=== PATIENT | male | born 1945 | race Caucasian/White ===

== ENCOUNTER 2017-08-07 07:52 | Day surgery (SDC) | payer MEDICARE, OTHER ==
[2017-08-06 11:57] LABS: BLOOD UREA NITROGEN 7 mg/dL (7-18)
[2017-08-06 12:00] LABS: ASPARTATE AMINO TRANSFERASE 19 U/L (15-37)
[~2017-08-07] VITALS: Ht 170.2 cm; Wt 76.5 kg
[~2017-08-07 07:52] MED LIST: ATOR80TA PO; EZET10TA18 PO; FENO145T32 PO; GABA300C10 PO; HYDR-3240 PO; HYDR12.58 PO; IBUP-1222 PO; INSU100I13 SC; LATA2.5D3 EACHEYE; LOSA25TA5 PO; MIRT30TA4 PO; RANI150T4 PO; SITA50TA PO; VENL150C PO; VERA240T86 PO
[2017-08-07] MEDS ORDERED: LACTATED RINGERS 1,000 ML IV SCH (08:34)
[2017-08-07] MEDS ORDERED: METH500T97 PO (08:37)
[2017-08-07 08:40] VITALS: BP 156/78
[2017-08-07] MEDS ORDERED: DEXAMETHASONE 4 MG/ML, 1ML ONE (08:56)
[2017-08-07] MEDS ORDERED: ONDANSETRON 2MG/ML, 2ML ONE (08:56)
[2017-08-07] MEDS ORDERED: PROPOFOL 10 MG/ML, 20ML ONE (08:56)
[2017-08-07] MEDS ORDERED: HYDROmorphone 1 MG/ML, 1ML IV PRN (09:00)
[2017-08-07] MEDS ORDERED: LABETALOL 5MG/ML, 20ML IV PRN (09:00)
[2017-08-07] MEDS ORDERED: hydrALAzine 20 MG/ML, 1ML IV PRN (09:00)
[2017-08-07] MEDS ORDERED: ALBUTEROL SULFATE 2.5 MG/3 ML NPPB PRN (09:00)
[2017-08-07] MEDS ORDERED: FENTANYL PF 100 MCG/2ML IV PRN (09:00)
[2017-08-07] MEDS ORDERED: PROMETHAZINE 25 MG/ML, 1ML IV PRN (09:00)
[2017-08-07] MEDS ORDERED: LIDOCAINE 1%, 2ML SQ PRN (09:00)
[2017-08-07] MEDS ORDERED: OXYcodone 5 MG/5 ML ORAL.SOL UDC PO PRN (09:00)
[2017-08-07] MEDS ORDERED: MEPERIDINE/PF 25MG/0.5ML IVPush PRN (09:00)
[2017-08-07] MEDS ORDERED: MIDAZOLAM 1 MG/ML, 2ML IV PRN (09:00)
[2017-08-07] MEDS ORDERED: ONDANSETRON 2MG/ML, 2ML IVPush PRN (09:00)
[2017-08-07] MEDS ORDERED: ACETAMINOPHEN 325 MG TABLET PO PRN (09:00)
== END 2017-08-07 11:20 ==
LOC: OUT 07:52
PROVIDERS: ATTEND Internal Medicine Geriatric Medicine
DX: C15.9 Malignant neoplasm of esophagus, unspecified (principal); K21.9 Gastro-esophageal reflux disease without esophagitis; J44.9 Chronic obstructive pulmonary disease, unspecified; E78.5 Hyperlipidemia, unspecified; I10 Essential (primary) hypertension; E11.9 Type 2 diabetes mellitus without complications; F17.210 Nicotine dependence, cigarettes, uncomplicated; Z86.14 Personal history of Methicillin resistant Staphylococcus aureus infection; Z88.8 Allergy status to other drugs, medicaments and biological substances; Z72.89 Other problems related to lifestyle
CPT/HCPCS: 36415; 43237; 43239; 80053; 82962; 93005; J1100; J2405; J2704; J7120

== ENCOUNTER → 2017-08-28 | Outpatient (CLI) | payer MEDICARE, OTHER ==
[~2017-08-28] MED LIST changes: +ATARAX; +METH500T97 PO; +XANAX
[2017-08-28 10:55] LABS: HEMATOCRIT 42.8 % (39.2-51.8); HEMOGLOBIN 14.5 g/dL (13.7-18.0); WHITE BLOOD COUNT 6.7 x10^3/uL (3.4-10)
[2017-08-28 11:08] LABS: ASPARTATE AMINO TRANSFERASE 25 U/L (15-37); BLOOD UREA NITROGEN 6 mg/dL (7-18)
== END | disposition home or self-care (01) ==
LOC: STAR 09:58
PROVIDERS: ATTEND Thoracic Surgery (Cardiothoracic Vascular Surgery)
DX: Z01.818 Encounter for other preprocedural examination (principal)
CPT/HCPCS: 36415; 80053; 85025

== ENCOUNTER 2017-09-07 09:59 | Inpatient (IN) | payer MEDICARE, OTHER ==
[~2017-09-07] VITALS: Ht 170.2 cm; Wt 71.3 kg
[2017-09-07] MEDS ORDERED: LACTATED RINGERS 1,000 ML IV SCH (13:20)
[2017-09-07 13:21] VITALS: BP 152/88
[2017-09-07] MEDS ORDERED: LIDOCAINE 1%, 2ML SQ PRN (13:30)
[2017-09-07] MEDS ORDERED: LIDOCAINE 2%, 2ML ONE (13:33)
[2017-09-07] MEDS ORDERED: LIDOCAINE 1%, 2ML ONE (14:08)
[2017-09-07] MEDS ORDERED: FENTANYL PF 250 MCG/5ML ONE (14:11)
[2017-09-07] MEDS ORDERED: PROPOFOL 10 MG/ML, 20ML ONE (14:13)
[2017-09-07] MEDS ORDERED: ROCURONIUM 10MG/ML,5ML ONE (14:13)
[2017-09-07] MEDS ORDERED: CEFAZOLIN 1,000 MG ONE ×2 (14:13)
[2017-09-07] MEDS ORDERED: BUPIVACAINE/PF 0.5% ONE (14:16)
[2017-09-07] MEDS ORDERED: EPINEPHRINE 1 MG/ML, 1ML ONE (14:16)
[2017-09-07] MEDS ORDERED: ALBUMIN HUMAN 5%, 25G/500ML ONE (17:15)
[2017-09-07] MEDS ORDERED: OXYcodone 5 MG/5 ML ORAL.SOL UDC PO PRN (17:30)
[2017-09-07] MEDS ORDERED: ONDANSETRON 2MG/ML, 2ML IVPush PRN ×2 (17:30→18:30)
[2017-09-07] MEDS ORDERED: hydrALAzine 20 MG/ML, 1ML IV PRN (17:30)
[2017-09-07] MEDS ORDERED: LABETALOL 5MG/ML, 20ML IV PRN (17:30)
[2017-09-07] MEDS ORDERED: ACETAMINOPHEN 325 MG TABLET PO PRN (17:30)
[2017-09-07] MEDS ORDERED: METOPROLOL 1 MG/ML, 5ML IV PRN (17:30)
[2017-09-07] MEDS ORDERED: PROMETHAZINE 25 MG/ML, 1ML IV PRN (17:30)
[2017-09-07] MEDS ORDERED: ALBUTEROL SULFATE 2.5 MG/3 ML NPPB PRN (17:30)
[2017-09-07] MEDS ORDERED: EPHEDRINE 50 MG/ML, 1ML IVPush PRN (17:30)
[2017-09-07] MEDS ORDERED: NEOSTIGMINE 1 MG/ML, 10ML ONE (17:52)
[2017-09-07] MEDS ORDERED: GLYCOPYRROLATE 0.2MG/1ML, 5ML ONE (17:52)
[2017-09-07] MEDS ORDERED: ONDANSETRON 2MG/ML, 2ML ONE (17:52)
[2017-09-07] MEDS: LACTATED RINGERS 1,000 ML IV SCH (18:11)
[2017-09-07] MEDS ORDERED: DIPHENHYDRAMINE 50 MG/ML, 1ML IVPush PRN (18:30)
[2017-09-07] MEDS ORDERED: hydrALAzine 20 MG/ML, 1ML IVPush PRN (18:30)
[2017-09-07] MEDS ORDERED: ENALAPRILAT 1.25 MG/ML, 2ML IVPush PRN (18:30)
[2017-09-07] MEDS ORDERED: FENTANYL PF 100 MCG/2ML ONE ×2 (18:33→19:18)
[2017-09-07] MEDS ORDERED: HYDROmorphone 1 MG/ML, 1ML ONE ×2 (18:34→18:57)
[2017-09-07 18:37] LABS: HEMATOCRIT 40.2 % (39.2-51.8); HEMOGLOBIN 13.2 g/dL (13.7-18.0)
[2017-09-07] MEDS: HYDROmorphone 1 MG/ML, 1ML IV PRN ×7 (18:37→19:28)
[2017-09-07] MEDS: FENTANYL PF 100 MCG/2ML IV PRN ×2 (18:49→18:57)
[2017-09-07] MEDS: INSULIN REGULAR 100 UNITS/ML, 3ML VIAL SQ-INSULIN SCH (22:40)
[2017-09-07] MEDS: CEFAZOLIN PMX 2GM/50ML 50 ML IVPB SCH (22:41)
[2017-09-07] MEDS: LORazepam 2 MG/ML, 1ML IVPush PRN (22:41)
[2017-09-08 03:29] VITALS: BP 149/88
[2017-09-08 06:10] LABS: BLOOD UREA NITROGEN 17 mg/dL (7-18)
[2017-09-08 06:13] LABS: HEMATOCRIT 41.8 % (39.2-51.8); HEMOGLOBIN 13.9 g/dL (13.7-18.0); WHITE BLOOD COUNT 17.1 x10^3/uL (3.4-10)
[2017-09-08 06:36] VITALS: BP 127/67
[2017-09-08 07:28] LABS: DIFF TOTAL CELLS COUNTED 100 CELL DIFF
[2017-09-08 07:40] LABS: LARGE PLATELETS 1+; VERIFY COUNTS? YES
[2017-09-08] MEDS: INSULIN REGULAR 100 UNITS/ML, 3ML VIAL SQ-INSULIN SCH ×3 (07:56→20:33)
[2017-09-08] MEDS: PANTOPRAZOLE 40 MG IV IVPush SCH (07:57)
[2017-09-08] MEDS: ENOXAPARIN 40 MG/0.4 ML SQ SCH (07:57)
[2017-09-08] MEDS: LACTATED RINGERS 1,000 ML IV SCH ×2 (07:59→20:33)
[2017-09-08] MEDS: CEFAZOLIN PMX 2GM/50ML 50 ML IVPB SCH ×2 (07:59→15:15)
[2017-09-08] MEDS: LORazepam 2 MG/ML, 1ML IVPush PRN ×2 (08:30→09:57)
[2017-09-08] MEDS ORDERED: ALBUTEROL/IPRATROPIUM 2.5MG/0.5MG, 3 ML NPPB PRN (11:30)
[2017-09-08 12:39] VITALS: BP 135/84
[2017-09-08 13:35] VITALS: BP 147/93
[2017-09-08] MEDS ORDERED: LACTATED RINGERS 500 ML IVBOLUS ONE (14:00)
[2017-09-08] MEDS: ALBUTEROL/IPRATROPIUM 2.5MG/0.5MG, 3 ML NPPB SCH ×3 (14:42→21:59)
[2017-09-08 15:52] LABS: ABG COLLECTION SITE RIGHT BRACHIAL
[2017-09-08 16:09] LABS: IS PT STATUS REG ER OR PRE ER? NO
[2017-09-08] MEDS ORDERED: BUPIVACAINE/PF 0.5% ONE (16:30)
[2017-09-08] MEDS ORDERED: NOREPINEPHRINE 4 MG in SODIUM CHLORIDE 0.9% 246 ML IV PRN (16:30)
[2017-09-08] MEDS ORDERED: FUROSEMIDE 40 MG/4 ML IV ONE (16:30)
[2017-09-08] MEDS ORDERED: EPINEPHRINE 1 MG/ML, 1ML ONE (16:30)
[2017-09-08] MEDS ORDERED: ROCURONIUM 10MG/ML,5ML ONE (17:03)
[2017-09-08] MEDS ORDERED: ETOMIDATE 20 MG/10 ML ONE (17:03)
[2017-09-08] MEDS: PIPERACILLIN/TAZO/PMX 4.5GM 100 ML IV SCH (17:07)
[2017-09-08] MEDS ORDERED: MIDAZOLAM 1 MG/ML, 2ML ONE ×3 (17:16→18:38)
[2017-09-08 17:41] LABS: IS PT STATUS REG ER OR PRE ER? NO
[2017-09-08] MEDS ORDERED: PHENYLEPHRINE 10 MG/ML ONE (17:42)
[2017-09-08] MEDS ORDERED: FENTANYL PF 100 MCG/2ML ONE (17:47)
[2017-09-08] MEDS: MICAFUNGIN 100 MG in SODIUM CHLORIDE 0.9% 100 ML IV SCH (20:32)
[2017-09-08] MEDS: morphine SULFATE 10 MG/ML, 1ML IVPush PRN (22:40)
[2017-09-08] MEDS: PROPOFOL 100 ML IV PRN (22:47)
[2017-09-09] MEDS: PIPERACILLIN/TAZO/PMX 4.5GM 100 ML IV SCH ×2 (01:06→08:13)
[2017-09-09] MEDS: ALBUTEROL/IPRATROPIUM 2.5MG/0.5MG, 3 ML NPPB SCH (02:00)
[2017-09-09] MEDS: morphine SULFATE 10 MG/ML, 1ML IVPush PRN ×7 (04:17→23:13)
[2017-09-09 04:53] LABS: ABG COLLECTION SITE RIGHT RADIAL; COLLATERAL CIRCULATION TESTING NORMAL
[2017-09-09 05:07] LABS: HEMATOCRIT 36.4 % (39.2-51.8); HEMOGLOBIN 12.3 g/dL (13.7-18.0)
[2017-09-09 05:20] LABS: ASPARTATE AMINO TRANSFERASE 107 U/L (15-37); BLOOD UREA NITROGEN 28 mg/dL (7-18); IS PT STATUS REG ER OR PRE ER? NO
[2017-09-09 05:26] LABS: DIFF TOTAL CELLS COUNTED 100 CELL DIFF
[2017-09-09 05:28] LABS: VERIFY COUNTS? YES
[2017-09-09 05:29] LABS: ANISOCYTOSIS 1+
[2017-09-09 05:30] LABS: LARGE PLATELETS 1+
[2017-09-09] MEDS: LACTATED RINGERS 1,000 ML IV SCH ×2 (05:48→15:32)
[2017-09-09] MEDS: ALBUTEROL/IPRATROPIUM 2.5MG/0.5MG, 3 ML INLINE SCH ×5 (06:00→22:45)
[2017-09-09] MEDS ORDERED: MAGNESIUM SULFATE PMX 2GM/50ML 50 ML IV ONE (08:00)
[2017-09-09] MEDS ORDERED: FUROSEMIDE 40 MG/4 ML IV ONE (08:00)
[2017-09-09] MEDS: PANTOPRAZOLE 40 MG IV IVPush SCH (08:12)
[2017-09-09] MEDS: INSULIN REGULAR 100 UNITS/ML, 3ML VIAL SQ-INSULIN SCH ×4 (08:28→21:30)
[2017-09-09] MEDS: ENOXAPARIN 40 MG/0.4 ML SQ SCH (10:00)
[2017-09-09] MEDS: AMPICILLIN/SULBACTAM 3 GM in SODIUM CHLORIDE 0.9% 100 ML IV SCH ×3 (12:17→23:13)
[2017-09-09] MEDS: PROPOFOL 100 ML IV PRN (14:30)
[2017-09-09] MEDS: INSULIN DETEMIR 100 UNITS/ML, PEN SQ-INSULIN SCH (15:40)
[2017-09-09] MEDS: MICAFUNGIN 100 MG in SODIUM CHLORIDE 0.9% 100 ML IV SCH (16:10)
[2017-09-10] MEDS: morphine SULFATE 10 MG/ML, 1ML IVPush PRN ×5 (02:33→14:54)
[2017-09-10] MEDS: PROPOFOL 100 ML IV PRN (02:34)
[2017-09-10] MEDS: LACTATED RINGERS 1,000 ML IV SCH (02:35)
[2017-09-10] MEDS: ALBUTEROL/IPRATROPIUM 2.5MG/0.5MG, 3 ML INLINE SCH ×2 (02:45→06:00)
[2017-09-10] MEDS: INSULIN DETEMIR 100 UNITS/ML, PEN SQ-INSULIN SCH ×2 (03:03→14:30)
[2017-09-10 03:10] LABS: ABG COLLECTION SITE ARTERIAL LINE
[2017-09-10 03:12] LABS: HEMATOCRIT 32.2 % (39.2-51.8); HEMOGLOBIN 10.8 g/dL (13.7-18.0); WHITE BLOOD COUNT 11.1 x10^3/uL (3.4-10)
[2017-09-10 03:50] LABS: DIFF TOTAL CELLS COUNTED 100 CELL DIFF
[2017-09-10 03:53] LABS: VERIFY COUNTS? YES
[2017-09-10 03:54] LABS: ANISOCYTOSIS 1+; LARGE PLATELETS 1+
[2017-09-10] MEDS: AMPICILLIN/SULBACTAM 3 GM in SODIUM CHLORIDE 0.9% 100 ML IV SCH ×3 (05:49→18:00)
[2017-09-10] MEDS: INSULIN REGULAR 100 UNITS/ML, 3ML VIAL SQ-INSULIN SCH ×4 (08:12→21:29)
[2017-09-10] MEDS: ENOXAPARIN 40 MG/0.4 ML SQ SCH (08:15)
[2017-09-10] MEDS: PANTOPRAZOLE 40 MG IV IVPush SCH (08:16)
[2017-09-10 09:02] LABS: ASPARTATE AMINO TRANSFERASE 69 U/L (15-37); BLOOD UREA NITROGEN 31 mg/dL (7-18)
[2017-09-10] MEDS ORDERED: FUROSEMIDE 40 MG/4 ML ONE (11:25)
[2017-09-10] MEDS ORDERED: FUROSEMIDE 40 MG/4 ML IV ONE ×3 (12:00→22:00)
[2017-09-10] MEDS: ALBUTEROL/IPRATROPIUM 2.5MG/0.5MG, 3 ML NPPB SCH ×3 (15:00→23:30)
[2017-09-10] MEDS: MICAFUNGIN 100 MG in SODIUM CHLORIDE 0.9% 100 ML IV SCH (16:32)
[2017-09-10] MEDS: MORPHINE SULFATE 4 MG/ML, 1ML IVPush PRN (19:25)
[2017-09-10] MEDS: LORazepam 2 MG/ML, 1ML IVPush PRN (23:45)
[2017-09-11] MEDS: AMPICILLIN/SULBACTAM 3 GM in SODIUM CHLORIDE 0.9% 100 ML IV SCH ×5 (00:03→23:45)
[2017-09-11] MEDS: LORazepam 2 MG/ML, 1ML IVPush PRN ×3 (00:48→17:25)
[2017-09-11] MEDS: MORPHINE SULFATE 4 MG/ML, 1ML IVPush PRN ×4 (02:17→13:20)
[2017-09-11] MEDS: ALBUTEROL/IPRATROPIUM 2.5MG/0.5MG, 3 ML NPPB SCH ×6 (03:01→22:04)
[2017-09-11 04:31] LABS: ABG COLLECTION SITE LEFT BRACHIAL
[2017-09-11] MEDS: INSULIN DETEMIR 100 UNITS/ML, PEN SQ-INSULIN SCH ×2 (05:18→17:22)
[2017-09-11 07:34] LABS: HEMATOCRIT 34.3 % (39.2-51.8); HEMOGLOBIN 11.6 g/dL (13.7-18.0); WHITE BLOOD COUNT 14.4 x10^3/uL (3.4-10)
[2017-09-11] MEDS: INSULIN REGULAR 100 UNITS/ML, 3ML VIAL SQ-INSULIN SCH ×4 (07:37→20:35)
[2017-09-11 07:50] LABS: DIFF TOTAL CELLS COUNTED 100 CELL DIFF
[2017-09-11 07:53] LABS: VERIFY COUNTS? YES
[2017-09-11 07:54] LABS: LARGE PLATELETS 1+
[2017-09-11 08:37] LABS: BLOOD UREA NITROGEN 30 mg/dL (7-18)
[2017-09-11] MEDS: PANTOPRAZOLE 40 MG IV IVPush SCH (10:08)
[2017-09-11] MEDS: ENOXAPARIN 40 MG/0.4 ML SQ SCH (10:08)
[2017-09-11] MEDS: FOLIC ACID 1 MG TABLET NG SCH (10:08)
[2017-09-11] MEDS: CHLORDIAZEPOXIDE 10 MG CAPSULE PO SCH ×3 (10:08→20:33)
[2017-09-11] MEDS: THIAMINE 100MG TABLET NG SCH (10:08)
[2017-09-11] MEDS: POTASSIUM CHLORIDE 10% 40 MEQ/30 ML UDC NG SCH ×2 (10:08→20:33)
[2017-09-11] MEDS ORDERED: FUROSEMIDE 40 MG/4 ML IV ONE (10:30)
[2017-09-11] MEDS: NICOTINE 14MG/24 HR PATCH.TD24 TD SCH (12:15)
[2017-09-11] MEDS ORDERED: PROPOFOL 10 MG/ML, 100ML IV ONE (14:00)
[2017-09-11] MEDS ORDERED: MIDAZOLAM 1 MG/ML, 5ML ONE (14:00)
[2017-09-11] MEDS ORDERED: ETOMIDATE 20 MG/10 ML ONE (14:00)
[2017-09-11] MEDS: MICAFUNGIN 100 MG in SODIUM CHLORIDE 0.9% 100 ML IV SCH (17:22)
[2017-09-11 18:00] LABS: ABG COLLECTION SITE RIGHT BRACHIAL
[2017-09-11] MEDS ORDERED: LACTATED RINGERS 1,000 ML IV SCH (18:11)
[2017-09-11] MEDS: ALBUTEROL/IPRATROPIUM 2.5MG/0.5MG, 3 ML INLINE SCH ×2 (18:25→21:47)
[2017-09-11] MEDS: PROPOFOL 100 ML IV PRN (23:46)
[2017-09-12] MEDS: ALBUTEROL/IPRATROPIUM 2.5MG/0.5MG, 3 ML NPPB SCH (02:02)
[2017-09-12] MEDS: ALBUTEROL/IPRATROPIUM 2.5MG/0.5MG, 3 ML INLINE SCH ×5 (02:07→21:32)
[2017-09-12] MEDS: INSULIN DETEMIR 100 UNITS/ML, PEN SQ-INSULIN SCH ×2 (04:17→13:50)
[2017-09-12] MEDS: PROPOFOL 100 ML IV PRN ×3 (04:23→17:46)
[2017-09-12 04:48] LABS: ABG COLLECTION SITE RIGHT BRACHIAL
[2017-09-12 04:51] LABS: BLOOD UREA NITROGEN 37 mg/dL (7-18)
[2017-09-12] MEDS: AMPICILLIN/SULBACTAM 3 GM in SODIUM CHLORIDE 0.9% 100 ML IV SCH ×3 (05:07→17:41)
[2017-09-12 05:15] LABS: HEMATOCRIT 31.4 % (39.2-51.8); HEMOGLOBIN 10.7 g/dL (13.7-18.0); WHITE BLOOD COUNT 13.2 x10^3/uL (3.4-10)
[2017-09-12 05:58] LABS: DIFF TOTAL CELLS COUNTED 100 CELL DIFF
[2017-09-12 06:00] LABS: ANISOCYTOSIS 1+; POLYCHROMASIA 1+; VERIFY COUNTS? YES
[2017-09-12 06:01] LABS: LARGE PLATELETS 1+
[2017-09-12] MEDS: INSULIN REGULAR 100 UNITS/ML, 3ML VIAL SQ-INSULIN SCH ×4 (08:24→20:38)
[2017-09-12] MEDS: THIAMINE 100MG TABLET NG SCH (08:25)
[2017-09-12] MEDS: FOLIC ACID 1 MG TABLET NG SCH (08:25)
[2017-09-12] MEDS: CHLORDIAZEPOXIDE 10 MG CAPSULE PO SCH ×4 (08:25→20:35)
[2017-09-12] MEDS: ENOXAPARIN 40 MG/0.4 ML SQ SCH (08:26)
[2017-09-12] MEDS: NICOTINE 14MG/24 HR PATCH.TD24 TD SCH (08:28)
[2017-09-12] MEDS: POTASSIUM CHLORIDE 10% 40 MEQ/30 ML UDC NG SCH ×2 (08:29→20:34)
[2017-09-12] MEDS: PANTOPRAZOLE 40 MG IV IVPush SCH (09:53)
[2017-09-12] MEDS ORDERED: BISACODYL 10 MG SUPP PR PRN (13:00)
[2017-09-12] MEDS: MICAFUNGIN 100 MG in SODIUM CHLORIDE 0.9% 100 ML IV SCH (16:47)
[2017-09-12] MEDS ORDERED: ACETAMINOPHEN 650 MG/20.3 ML UDC PO PRN (17:30)
[2017-09-13] MEDS: AMPICILLIN/SULBACTAM 3 GM in SODIUM CHLORIDE 0.9% 100 ML IV SCH ×5 (00:20→23:23)
[2017-09-13] MEDS: PROPOFOL 100 ML IV PRN ×4 (00:54→15:02)
[2017-09-13] MEDS: ALBUTEROL/IPRATROPIUM 2.5MG/0.5MG, 3 ML INLINE SCH ×6 (01:46→22:00)
[2017-09-13] MEDS: INSULIN DETEMIR 100 UNITS/ML, PEN SQ-INSULIN SCH (02:13)
[2017-09-13 04:15] LABS: ABG COLLECTION SITE RIGHT RADIAL; COLLATERAL CIRCULATION TESTING NORMAL
[2017-09-13 05:20] LABS: HEMATOCRIT 31.4 % (39.2-51.8); HEMOGLOBIN 10.6 g/dL (13.7-18.0); WHITE BLOOD COUNT 12.1 x10^3/uL (3.4-10)
[2017-09-13 05:30] LABS: BLOOD UREA NITROGEN 36 mg/dL (7-18)
[2017-09-13] MEDS: INSULIN REGULAR 100 UNITS/ML, 3ML VIAL SQ-INSULIN SCH ×4 (06:59→21:32)
[2017-09-13] MEDS: POTASSIUM CHLORIDE 10% 40 MEQ/30 ML UDC NG SCH ×2 (08:23→21:32)
[2017-09-13] MEDS: PANTOPRAZOLE 40 MG IV IVPush SCH (08:23)
[2017-09-13] MEDS: CHLORDIAZEPOXIDE 10 MG CAPSULE PO SCH ×2 (08:23→21:32)
[2017-09-13] MEDS: ENOXAPARIN 40 MG/0.4 ML SQ SCH (08:23)
[2017-09-13] MEDS: FOLIC ACID 1 MG TABLET NG SCH (08:24)
[2017-09-13] MEDS: THIAMINE 100MG TABLET NG SCH (08:24)
[2017-09-13] MEDS ORDERED: FUROSEMIDE 40 MG/4 ML IV ONE (09:00)
[2017-09-13] MEDS: NICOTINE 14MG/24 HR PATCH.TD24 TD SCH (10:41)
[2017-09-13] MEDS: MICAFUNGIN 100 MG in SODIUM CHLORIDE 0.9% 100 ML IV SCH (17:20)
[2017-09-14] MEDS: ALBUTEROL/IPRATROPIUM 2.5MG/0.5MG, 3 ML INLINE SCH ×6 (02:00→22:00)
[2017-09-14 04:26] LABS: ABG COLLECTION SITE RIGHT BRACHIAL
[2017-09-14 04:29] LABS: HEMATOCRIT 31.1 % (39.2-51.8); HEMOGLOBIN 10.3 g/dL (13.7-18.0); WHITE BLOOD COUNT 12.1 x10^3/uL (3.4-10)
[2017-09-14 04:40] LABS: BLOOD UREA NITROGEN 34 mg/dL (7-18)
[2017-09-14] MEDS: AMPICILLIN/SULBACTAM 3 GM in SODIUM CHLORIDE 0.9% 100 ML IV SCH ×4 (05:01→23:21)
[2017-09-14] MEDS: PROPOFOL 100 ML IV PRN (05:04)
[2017-09-14] MEDS: INSULIN REGULAR 100 UNITS/ML, 3ML VIAL SQ-INSULIN SCH ×4 (06:58→21:04)
[2017-09-14] MEDS ORDERED: PANTOPROZOLE 40MG TABLET PO SCH (09:00)
[2017-09-14] MEDS ORDERED: DEXTROSE 5% IV PRN (09:00)
[2017-09-14] MEDS ORDERED: MIDAZOLAM HCL IV PRN (09:00)
[2017-09-14] MEDS: POTASSIUM CHLORIDE 10% 40 MEQ/30 ML UDC NG SCH ×2 (09:17→21:05)
[2017-09-14] MEDS: PANTOPRAZOLE 40 MG IV IV SCH (09:17)
[2017-09-14] MEDS: CHLORDIAZEPOXIDE 10 MG CAPSULE PO SCH ×2 (09:17→21:05)
[2017-09-14] MEDS: FOLIC ACID 1 MG TABLET NG SCH (09:17)
[2017-09-14] MEDS: THIAMINE 100MG TABLET NG SCH (09:17)
[2017-09-14] MEDS: ENOXAPARIN 40 MG/0.4 ML SQ SCH (09:17)
[2017-09-14] MEDS: METHOCARBAMOL 500 MG TABLET PO PRN ×2 (10:27→19:29)
[2017-09-14] MEDS: GABAPENTIN 300 MG CAPSULE PO SCH ×2 (10:27→21:05)
[2017-09-14] MEDS: NICOTINE 14MG/24 HR PATCH.TD24 TD SCH (10:27)
[2017-09-14] MEDS: HYDROcodone/APAP 5/325 TABLET PO PRN ×2 (10:27→19:29)
[2017-09-14] MEDS: MICAFUNGIN 100 MG in SODIUM CHLORIDE 0.9% 100 ML IV SCH (16:06)
[2017-09-14] MEDS: FUROSEMIDE 20 MG/2 ML IV SCH (16:06)
[2017-09-14] MEDS: DEXTROSE 5% IV PRN (19:29)
[2017-09-14] MEDS: MIDAZOLAM HCL IV PRN (19:29)
[2017-09-14] MEDS ORDERED: INSULIN DETEMIR 100 UNITS/ML, PEN SQ-INSULIN SCH (21:00)
[2017-09-15] MEDS: MIDAZOLAM HCL IV PRN ×3 (00:23→13:48)
[2017-09-15] MEDS: DEXTROSE 5% IV PRN ×3 (00:23→13:48)
[2017-09-15] MEDS: HYDROcodone/APAP 5/325 TABLET PO PRN ×4 (01:32→19:43)
[2017-09-15] MEDS: ALBUTEROL/IPRATROPIUM 2.5MG/0.5MG, 3 ML INLINE SCH ×6 (02:00→22:43)
[2017-09-15 04:13] LABS: HEMATOCRIT 29.6 % (39.2-51.8); HEMOGLOBIN 9.8 g/dL (13.7-18.0); WHITE BLOOD COUNT 12.3 x10^3/uL (3.4-10)
[2017-09-15 04:17] LABS: ABG COLLECTION SITE RIGHT RADIAL; COLLATERAL CIRCULATION TESTING NORMAL
[2017-09-15 04:22] LABS: ASPARTATE AMINO TRANSFERASE 26 U/L (15-37); BLOOD UREA NITROGEN 36 mg/dL (7-18)
[2017-09-15] MEDS: AMPICILLIN/SULBACTAM 3 GM in SODIUM CHLORIDE 0.9% 100 ML IV SCH ×4 (06:20→23:25)
[2017-09-15] MEDS: CHLORDIAZEPOXIDE 10 MG CAPSULE PO SCH ×2 (08:33→21:37)
[2017-09-15] MEDS: ENOXAPARIN 40 MG/0.4 ML SQ SCH (08:33)
[2017-09-15] MEDS: PANTOPRAZOLE 40 MG IV IV SCH (08:33)
[2017-09-15] MEDS: THIAMINE 100MG TABLET NG SCH (08:33)
[2017-09-15] MEDS: GABAPENTIN 300 MG CAPSULE PO SCH ×2 (08:33→21:36)
[2017-09-15] MEDS: POTASSIUM CHLORIDE 10% 40 MEQ/30 ML UDC NG SCH ×2 (08:33→21:36)
[2017-09-15] MEDS: FOLIC ACID 1 MG TABLET NG SCH (08:33)
[2017-09-15] MEDS: FUROSEMIDE 20 MG/2 ML IV SCH ×2 (08:34→17:03)
[2017-09-15] MEDS ORDERED: SODIUM CHLORIDE 0.9% 1,000 ML IV SCH (09:00)
[2017-09-15] MEDS ORDERED: DEXTROSE 5% 1,000 ML IV SCH ×2 (09:00→15:00)
[2017-09-15] MEDS: INSULIN DETEMIR 100 UNITS/ML, PEN SQ-INSULIN SCH ×2 (09:12→21:35)
[2017-09-15] MEDS: INSULIN REGULAR 100 UNITS/ML, 3ML VIAL SQ-INSULIN SCH ×4 (09:14→21:36)
[2017-09-15] MEDS: MORPHINE SULFATE 4 MG/ML, 1ML IVPush PRN ×2 (09:17→23:25)
[2017-09-15] MEDS: THIAMINE 100 MG in DEXTROSE 5% 50 ML IV SCH (10:20)
[2017-09-15] MEDS: METHOCARBAMOL 500 MG TABLET PO PRN ×2 (10:44→23:25)
[2017-09-15] MEDS: NICOTINE 14MG/24 HR PATCH.TD24 TD SCH (10:46)
[2017-09-15] MEDS: QUETIAPINE 25MG TABLET PO SCH ×2 (11:23→21:36)
[2017-09-15] MEDS: MICAFUNGIN 100 MG in SODIUM CHLORIDE 0.9% 100 ML IV SCH (15:40)
[2017-09-15] MEDS ORDERED: ONDANSETRON 2MG/ML, 2ML IVPush PRN (21:00)
[2017-09-15] MEDS ORDERED: hydrALAzine 20 MG/ML, 1ML IVPush PRN (21:00)
[2017-09-15] MEDS ORDERED: ACETAMINOPHEN 650 MG/20.3 ML UDC PO PRN (21:00)
[2017-09-15] MEDS ORDERED: BISACODYL 10 MG SUPP PR PRN (21:00)
[2017-09-16] MEDS: LORazepam 2 MG/ML, 1ML IVPush PRN ×2 (00:12→09:53)
[2017-09-16] MEDS: HYDROcodone/APAP 5/325 TABLET PO PRN (01:04)
[2017-09-16] MEDS: ALBUTEROL/IPRATROPIUM 2.5MG/0.5MG, 3 ML INLINE SCH ×6 (02:44→22:00)
[2017-09-16 04:26] LABS: HEMATOCRIT 30.5 % (39.2-51.8); HEMOGLOBIN 10.1 g/dL (13.7-18.0); WHITE BLOOD COUNT 16.2 x10^3/uL (3.4-10)
[2017-09-16 04:34] LABS: ABG COLLECTION SITE RIGHT BRACHIAL
[2017-09-16] MEDS: MORPHINE SULFATE 4 MG/ML, 1ML IVPush PRN ×3 (04:38→16:37)
[2017-09-16 04:47] LABS: BLOOD UREA NITROGEN 36 mg/dL (7-18)
[2017-09-16] MEDS: INSULIN REGULAR 100 UNITS/ML, 3ML VIAL SQ-INSULIN SCH ×4 (06:44→21:16)
[2017-09-16] MEDS: AMPICILLIN/SULBACTAM 3 GM in SODIUM CHLORIDE 0.9% 100 ML IV SCH ×4 (06:47→23:39)
[2017-09-16] MEDS: DIPHENHYDRAMINE 50 MG/ML, 1ML IVPush PRN (07:42)
[2017-09-16] MEDS: THIAMINE 100 MG in DEXTROSE 5% 50 ML IV SCH (09:51)
[2017-09-16] MEDS: FUROSEMIDE 20 MG/2 ML IV SCH ×2 (09:51→16:37)
[2017-09-16] MEDS: QUETIAPINE 25MG TABLET PO SCH ×2 (09:51→21:16)
[2017-09-16] MEDS: PANTOPRAZOLE 40 MG IV IV SCH (09:51)
[2017-09-16] MEDS: ENOXAPARIN 40 MG/0.4 ML SQ SCH (09:51)
[2017-09-16] MEDS: FOLIC ACID 1 MG TABLET NG SCH (09:51)
[2017-09-16] MEDS: POTASSIUM CHLORIDE 10% 40 MEQ/30 ML UDC NG SCH ×2 (09:51→21:27)
[2017-09-16] MEDS: GABAPENTIN 300 MG CAPSULE PO SCH ×2 (09:51→21:16)
[2017-09-16] MEDS: INSULIN DETEMIR 100 UNITS/ML, PEN SQ-INSULIN SCH ×2 (09:52→21:15)
[2017-09-16] MEDS: NICOTINE 14MG/24 HR PATCH.TD24 TD SCH (09:53)
[2017-09-16] MEDS: CHLORDIAZEPOXIDE 10 MG CAPSULE PO SCH ×2 (09:53→21:16)
[2017-09-16] MEDS ORDERED: morphine SULFATE 10 MG/ML, 1ML ONE (11:22)
[2017-09-16] MEDS: METHOCARBAMOL 500 MG TABLET PO PRN (16:36)
[2017-09-16] MEDS: MICAFUNGIN 100 MG in SODIUM CHLORIDE 0.9% 100 ML IV SCH (16:37)
[2017-09-16] MEDS: MIDAZOLAM HCL IV PRN (22:24)
[2017-09-16] MEDS: DEXTROSE 5% IV PRN (22:24)
[2017-09-17] MEDS: ALBUTEROL/IPRATROPIUM 2.5MG/0.5MG, 3 ML INLINE SCH ×6 (02:10→21:54)
[2017-09-17 04:28] LABS: ABG COLLECTION SITE RIGHT RADIAL; COLLATERAL CIRCULATION TESTING NORMAL
[2017-09-17 04:31] LABS: HEMATOCRIT 29.2 % (39.2-51.8); HEMOGLOBIN 9.7 g/dL (13.7-18.0); WHITE BLOOD COUNT 16.9 x10^3/uL (3.4-10)
[2017-09-17 04:43] LABS: BLOOD UREA NITROGEN 37 mg/dL (7-18)
[2017-09-17] MEDS: AMPICILLIN/SULBACTAM 3 GM in SODIUM CHLORIDE 0.9% 100 ML IV SCH ×3 (06:00→18:09)
[2017-09-17] MEDS ORDERED: morphine SULFATE 10 MG/ML, 1ML ONE (07:47)
[2017-09-17] MEDS: INSULIN REGULAR 100 UNITS/ML, 3ML VIAL SQ-INSULIN SCH ×4 (07:53→21:18)
[2017-09-17] MEDS: FUROSEMIDE 20 MG/2 ML IV SCH ×2 (07:53→18:09)
[2017-09-17] MEDS ORDERED: MORPHINE SULFATE 4 MG/ML, 1ML IVPush PRN (10:30)
[2017-09-17] MEDS: PANTOPRAZOLE 40 MG IV IV SCH (10:36)
[2017-09-17] MEDS: POTASSIUM CHLORIDE 10% 40 MEQ/30 ML UDC NG SCH ×2 (10:37→21:16)
[2017-09-17] MEDS: THIAMINE 100 MG in DEXTROSE 5% 50 ML IV SCH (10:37)
[2017-09-17] MEDS: CHLORDIAZEPOXIDE 10 MG CAPSULE PO SCH ×2 (10:37→21:16)
[2017-09-17] MEDS: GABAPENTIN 300 MG CAPSULE PO SCH ×2 (10:37→21:16)
[2017-09-17] MEDS: METHOCARBAMOL 500 MG TABLET PO PRN (10:37)
[2017-09-17] MEDS: QUETIAPINE 25MG TABLET PO SCH ×2 (10:37→21:16)
[2017-09-17] MEDS: ENOXAPARIN 40 MG/0.4 ML SQ SCH (10:38)
[2017-09-17] MEDS: FOLIC ACID 1 MG TABLET NG SCH (10:38)
[2017-09-17] MEDS: INSULIN DETEMIR 100 UNITS/ML, PEN SQ-INSULIN SCH ×2 (10:39→21:17)
[2017-09-17] MEDS: NICOTINE 14MG/24 HR PATCH.TD24 TD SCH (10:39)
[2017-09-17] MEDS: DEXMEDETOMIDINE 1,000 MCG in SODIUM CHLORIDE 0.9% 240 ML IV PRN (13:06)
[2017-09-17] MEDS: MICAFUNGIN 100 MG in SODIUM CHLORIDE 0.9% 100 ML IV SCH (15:59)
[2017-09-17] MEDS: DIPHENHYDRAMINE 50 MG/ML, 1ML IVPush PRN (21:16)
[2017-09-18] MEDS: AMPICILLIN/SULBACTAM 3 GM in SODIUM CHLORIDE 0.9% 100 ML IV SCH ×5 (00:57→23:25)
[2017-09-18] MEDS: ALBUTEROL/IPRATROPIUM 2.5MG/0.5MG, 3 ML INLINE SCH ×6 (02:00→21:45)
[2017-09-18 05:07] LABS: HEMATOCRIT 27.8 % (39.2-51.8); HEMOGLOBIN 9.4 g/dL (13.7-18.0); WHITE BLOOD COUNT 16.5 x10^3/uL (3.4-10)
[2017-09-18 05:15] LABS: BLOOD UREA NITROGEN 37 mg/dL (7-18)
[2017-09-18 05:31] LABS: ABG COLLECTION SITE RIGHT RADIAL; COLLATERAL CIRCULATION TESTING NORMAL
[2017-09-18] MEDS: FUROSEMIDE 20 MG/2 ML IV SCH ×2 (08:11→17:26)
[2017-09-18] MEDS: INSULIN REGULAR 100 UNITS/ML, 3ML VIAL SQ-INSULIN SCH (08:11)
[2017-09-18] MEDS: PANTOPRAZOLE 40 MG IV IV SCH (08:34)
[2017-09-18] MEDS: GABAPENTIN 300 MG CAPSULE PO SCH ×2 (08:34→21:03)
[2017-09-18] MEDS: FOLIC ACID 1 MG TABLET NG SCH (08:34)
[2017-09-18] MEDS: QUETIAPINE 25MG TABLET PO SCH ×2 (08:34→21:03)
[2017-09-18] MEDS: NICOTINE 14MG/24 HR PATCH.TD24 TD SCH (08:34)
[2017-09-18] MEDS: METHOCARBAMOL 500 MG TABLET PO PRN (08:34)
[2017-09-18] MEDS: ENOXAPARIN 40 MG/0.4 ML SQ SCH (08:35)
[2017-09-18] MEDS: POTASSIUM CHLORIDE 10% 40 MEQ/30 ML UDC NG SCH ×2 (08:35→21:03)
[2017-09-18] MEDS: THIAMINE 100 MG in DEXTROSE 5% 50 ML IV SCH (08:35)
[2017-09-18] MEDS: CHLORDIAZEPOXIDE 10 MG CAPSULE PO SCH (08:35)
[2017-09-18] MEDS: INSULIN DETEMIR 100 UNITS/ML, PEN SQ-INSULIN SCH ×2 (08:36→21:07)
[2017-09-18] MEDS ORDERED: INSULIN DETEMIR 100 UNITS/ML, PEN ONE (08:55)
[2017-09-18] MEDS: MICAFUNGIN 100 MG in SODIUM CHLORIDE 0.9% 100 ML IV SCH (16:07)
[2017-09-18] MEDS: INSULIN REGULAR, HUMAN 100 UNITS/ML, 3ML HIGH DOSE SS SQ-INSULIN SCH ×2 (16:12→21:07)
[2017-09-18] MEDS: DEXMEDETOMIDINE 1,000 MCG in SODIUM CHLORIDE 0.9% 240 ML IV PRN (23:25)
[2017-09-19] MEDS: ALBUTEROL/IPRATROPIUM 2.5MG/0.5MG, 3 ML INLINE SCH ×5 (02:30→22:00)
[2017-09-19] MEDS: INSULIN REGULAR, HUMAN 100 UNITS/ML, 3ML HIGH DOSE SS SQ-INSULIN SCH ×4 (03:08→21:43)
[2017-09-19 04:57] LABS: ABG COLLECTION SITE RIGHT RADIAL; COLLATERAL CIRCULATION TESTING NORMAL
[2017-09-19 05:05] LABS: BLOOD UREA NITROGEN 36 mg/dL (7-18)
[2017-09-19 05:09] LABS: HEMATOCRIT 28.5 % (39.2-51.8); HEMOGLOBIN 9.6 g/dL (13.7-18.0); WHITE BLOOD COUNT 15.4 x10^3/uL (3.4-10)
[2017-09-19] MEDS: AMPICILLIN/SULBACTAM 3 GM in SODIUM CHLORIDE 0.9% 100 ML IV SCH ×3 (05:12→17:15)
[2017-09-19] MEDS: QUETIAPINE 25MG TABLET PO SCH ×2 (08:19→21:43)
[2017-09-19] MEDS: FOLIC ACID 1 MG TABLET NG SCH (08:19)
[2017-09-19] MEDS: GABAPENTIN 300 MG CAPSULE PO SCH ×2 (08:19→21:42)
[2017-09-19] MEDS: POTASSIUM CHLORIDE 10% 40 MEQ/30 ML UDC NG SCH ×2 (08:20→21:42)
[2017-09-19] MEDS: FUROSEMIDE 20 MG/2 ML IV SCH ×2 (08:20→17:15)
[2017-09-19] MEDS: PANTOPRAZOLE 40 MG IV IV SCH (08:20)
[2017-09-19] MEDS: ENOXAPARIN 40 MG/0.4 ML SQ SCH (08:20)
[2017-09-19] MEDS: THIAMINE 100 MG in DEXTROSE 5% 50 ML IV SCH (09:09)
[2017-09-19] MEDS: INSULIN DETEMIR 100 UNITS/ML, PEN SQ-INSULIN SCH ×2 (09:10→21:44)
[2017-09-19] MEDS: NICOTINE 14MG/24 HR PATCH.TD24 TD SCH (11:56)
[2017-09-19] MEDS: MICAFUNGIN 100 MG in SODIUM CHLORIDE 0.9% 100 ML IV SCH (16:04)
[2017-09-20] MEDS: INSULIN REGULAR, HUMAN 100 UNITS/ML, 3ML HIGH DOSE SS SQ-INSULIN SCH ×4 (02:00→22:32)
[2017-09-20] MEDS: ALBUTEROL/IPRATROPIUM 2.5MG/0.5MG, 3 ML INLINE SCH ×3 (02:00→10:00)
[2017-09-20] MEDS: AMPICILLIN/SULBACTAM 3 GM in SODIUM CHLORIDE 0.9% 100 ML IV SCH ×4 (02:29→17:59)
[2017-09-20 04:22] LABS: ABG COLLECTION SITE RIGHT RADIAL; COLLATERAL CIRCULATION TESTING NORMAL
[2017-09-20 05:06] LABS: HEMATOCRIT 29.3 % (39.2-51.8); HEMOGLOBIN 9.7 g/dL (13.7-18.0); WHITE BLOOD COUNT 13.1 x10^3/uL (3.4-10)
[2017-09-20 05:15] LABS: BLOOD UREA NITROGEN 37 mg/dL (7-18)
[2017-09-20 05:19] LABS: ASPARTATE AMINO TRANSFERASE 34 U/L (15-37)
[2017-09-20] MEDS: FUROSEMIDE 20 MG/2 ML IV SCH ×2 (07:38→16:59)
[2017-09-20] MEDS: FOLIC ACID 1 MG TABLET NG SCH (09:49)
[2017-09-20] MEDS: POTASSIUM CHLORIDE 10% 40 MEQ/30 ML UDC NG SCH ×2 (09:49→20:29)
[2017-09-20] MEDS: GABAPENTIN 300 MG CAPSULE PO SCH ×2 (09:49→20:30)
[2017-09-20] MEDS: THIAMINE 100 MG in DEXTROSE 5% 50 ML IV SCH (09:50)
[2017-09-20] MEDS: QUETIAPINE 25MG TABLET PO SCH ×2 (09:50→20:30)
[2017-09-20] MEDS: ENOXAPARIN 40 MG/0.4 ML SQ SCH (09:50)
[2017-09-20] MEDS: NICOTINE 14MG/24 HR PATCH.TD24 TD SCH (09:51)
[2017-09-20] MEDS: INSULIN DETEMIR 100 UNITS/ML, PEN SQ-INSULIN SCH ×2 (09:53→22:32)
[2017-09-20] MEDS: PANTOPRAZOLE 40 MG IV IV SCH (10:05)
[2017-09-20] MEDS ORDERED: ALBUTEROL/IPRATROPIUM 2.5MG/0.5MG, 3 ML NPPB PRN (13:00)
[2017-09-20] MEDS: ALBUTEROL/IPRATROPIUM 2.5MG/0.5MG, 3 ML NPPB SCH ×2 (14:00→21:32)
[2017-09-20] MEDS: MICAFUNGIN 100 MG in SODIUM CHLORIDE 0.9% 100 ML IV SCH (16:59)
[2017-09-20] MEDS: HYDROcodone/APAP 5/325 TABLET PO PRN (22:24)
[2017-09-20] MEDS: METHOCARBAMOL 500 MG TABLET PO PRN (22:24)
[2017-09-20] MEDS: LORazepam 2 MG/ML, 1ML IVPush PRN (23:01)
[2017-09-21] MEDS: morphine SULFATE 10 MG/ML, 1ML IVPush PRN ×2 (00:24→03:33)
[2017-09-21] MEDS: AMPICILLIN/SULBACTAM 3 GM in SODIUM CHLORIDE 0.9% 100 ML IV SCH ×5 (00:24→23:19)
[2017-09-21] MEDS: DIPHENHYDRAMINE 50 MG/ML, 1ML IVPush PRN (03:33)
[2017-09-21 04:40] LABS: ABG COLLECTION SITE RIGHT RADIAL; COLLATERAL CIRCULATION TESTING NORMAL
[2017-09-21 04:47] LABS: HEMATOCRIT 31.8 % (39.2-51.8); HEMOGLOBIN 10.5 g/dL (13.7-18.0); WHITE BLOOD COUNT 12.6 x10^3/uL (3.4-10)
[2017-09-21 04:59] LABS: BLOOD UREA NITROGEN 34 mg/dL (7-18)
[2017-09-21] MEDS: INSULIN REGULAR, HUMAN 100 UNITS/ML, 3ML HIGH DOSE SS SQ-INSULIN SCH ×4 (05:00→23:19)
[2017-09-21] MEDS: ALBUTEROL/IPRATROPIUM 2.5MG/0.5MG, 3 ML NPPB SCH ×3 (06:00→14:00)
[2017-09-21] MEDS: LORazepam 2 MG/ML, 1ML IVPush PRN ×2 (08:23→20:00)
[2017-09-21] MEDS: INSULIN DETEMIR 100 UNITS/ML, PEN SQ-INSULIN SCH ×2 (08:23→23:18)
[2017-09-21] MEDS: GABAPENTIN 300 MG CAPSULE PO SCH ×2 (08:24→20:44)
[2017-09-21] MEDS: FOLIC ACID 1 MG TABLET NG SCH (08:24)
[2017-09-21] MEDS: ENOXAPARIN 40 MG/0.4 ML SQ SCH (08:24)
[2017-09-21] MEDS: QUETIAPINE 25MG TABLET PO SCH (08:24)
[2017-09-21] MEDS: FUROSEMIDE 20 MG/2 ML IV SCH ×2 (08:24→17:08)
[2017-09-21] MEDS: PANTOPRAZOLE 40 MG IV IV SCH (08:24)
[2017-09-21] MEDS: NICOTINE 14MG/24 HR PATCH.TD24 TD SCH (08:25)
[2017-09-21] MEDS: POTASSIUM CHLORIDE 10% 40 MEQ/30 ML UDC NG SCH ×2 (08:30→20:44)
[2017-09-21] MEDS: THIAMINE 100 MG in DEXTROSE 5% 50 ML IV SCH (10:22)
[2017-09-21] MEDS: MICAFUNGIN 100 MG in SODIUM CHLORIDE 0.9% 100 ML IV SCH (17:08)
[2017-09-21] MEDS: QUETIAPINE 100MG TABLET PO SCH (20:45)
[2017-09-21] MEDS: METHOCARBAMOL 500 MG TABLET PO PRN (23:20)
[2017-09-21] MEDS: HYDROcodone/APAP 5/325 TABLET PO PRN (23:20)
[2017-09-22] MEDS: DIPHENHYDRAMINE 50 MG/ML, 1ML IVPush PRN ×2 (00:33→23:10)
[2017-09-22] MEDS: morphine SULFATE 10 MG/ML, 1ML IVPush PRN ×2 (00:45→06:03)
[2017-09-22] MEDS: LORazepam 2 MG/ML, 1ML IVPush PRN (04:19)
[2017-09-22 04:39] LABS: ABG COLLECTION SITE RIGHT BRACHIAL
[2017-09-22 04:41] LABS: HEMATOCRIT 31.1 % (39.2-51.8); HEMOGLOBIN 10.3 g/dL (13.7-18.0); WHITE BLOOD COUNT 13.7 x10^3/uL (3.4-10)
[2017-09-22 04:53] LABS: BLOOD UREA NITROGEN 44 mg/dL (7-18)
[2017-09-22] MEDS: AMPICILLIN/SULBACTAM 3 GM in SODIUM CHLORIDE 0.9% 100 ML IV SCH ×3 (06:03→19:36)
[2017-09-22] MEDS: INSULIN REGULAR, HUMAN 100 UNITS/ML, 3ML HIGH DOSE SS SQ-INSULIN SCH ×4 (06:08→22:30)
[2017-09-22] MEDS: QUETIAPINE 100MG TABLET PO SCH ×2 (09:00→13:30)
[2017-09-22] MEDS: NICOTINE 14MG/24 HR PATCH.TD24 TD SCH (09:05)
[2017-09-22] MEDS: THIAMINE 100 MG in DEXTROSE 5% 50 ML IV SCH (09:05)
[2017-09-22] MEDS: FOLIC ACID 1 MG TABLET NG SCH (09:06)
[2017-09-22] MEDS: METHOCARBAMOL 500 MG TABLET PO PRN (09:06)
[2017-09-22] MEDS: POTASSIUM CHLORIDE 10% 40 MEQ/30 ML UDC NG SCH ×2 (09:06→21:39)
[2017-09-22] MEDS: GABAPENTIN 300 MG CAPSULE PO SCH ×2 (09:06→22:27)
[2017-09-22] MEDS: INSULIN DETEMIR 100 UNITS/ML, PEN SQ-INSULIN SCH ×2 (09:06→22:28)
[2017-09-22] MEDS: FUROSEMIDE 20 MG/2 ML IV SCH ×2 (09:07→16:16)
[2017-09-22] MEDS: ENOXAPARIN 40 MG/0.4 ML SQ SCH (09:07)
[2017-09-22] MEDS: PANTOPRAZOLE 40 MG IV IV SCH (09:07)
[2017-09-22] MEDS: MICAFUNGIN 100 MG in SODIUM CHLORIDE 0.9% 100 ML IV SCH (16:15)
[2017-09-22 17:45] VITALS: BP 115/75
[2017-09-22] MEDS: VANCOMYCIN 50 MG/ML ORAL SUSP PO SCH (18:54)
[2017-09-22 19:33] VITALS: BP 115/75
[2017-09-22] MEDS: QUETIAPINE 25MG TABLET PO SCH (21:39)
[2017-09-23 00:02] VITALS: BP 119/77
[2017-09-23] MEDS: LORazepam 2 MG/ML, 1ML IVPush PRN ×2 (00:35→01:34)
[2017-09-23] MEDS: VANCOMYCIN 50 MG/ML ORAL SUSP PO SCH ×4 (00:35→17:32)
[2017-09-23] MEDS: AMPICILLIN/SULBACTAM 3 GM in SODIUM CHLORIDE 0.9% 100 ML IV SCH ×4 (01:34→20:23)
[2017-09-23 03:46] VITALS: BP 111/76
[2017-09-23] MEDS: INSULIN REGULAR, HUMAN 100 UNITS/ML, 3ML HIGH DOSE SS SQ-INSULIN SCH ×3 (04:59→17:30)
[2017-09-23 05:50] LABS: HEMATOCRIT 34.5 % (39.2-51.8); HEMOGLOBIN 11.4 g/dL (13.7-18.0); WHITE BLOOD COUNT 14.5 x10^3/uL (3.4-10)
[2017-09-23 05:59] LABS: BLOOD UREA NITROGEN 49 mg/dL (7-18)
[2017-09-23 06:30] VITALS: BP 119/76
[2017-09-23] MEDS: FUROSEMIDE 20 MG/2 ML IV SCH ×2 (07:59→17:31)
[2017-09-23] MEDS: GABAPENTIN 300 MG CAPSULE PO SCH ×2 (08:06→20:23)
[2017-09-23] MEDS: QUETIAPINE 25MG TABLET PO SCH (08:06)
[2017-09-23] MEDS: POTASSIUM CHLORIDE 10% 40 MEQ/30 ML UDC NG SCH ×2 (08:06→20:38)
[2017-09-23] MEDS: ENOXAPARIN 40 MG/0.4 ML SQ SCH (08:07)
[2017-09-23] MEDS: PANTOPRAZOLE 40 MG IV IV SCH (08:07)
[2017-09-23] MEDS: FOLIC ACID 1 MG TABLET NG SCH (08:08)
[2017-09-23] MEDS: INSULIN DETEMIR 100 UNITS/ML, PEN SQ-INSULIN SCH ×2 (09:46→20:24)
[2017-09-23] MEDS: THIAMINE 100 MG in DEXTROSE 5% 50 ML IV SCH (11:44)
[2017-09-23] MEDS: NICOTINE 14MG/24 HR PATCH.TD24 TD SCH (11:45)
[2017-09-23 12:39] VITALS: BP 125/84
[2017-09-23] MEDS ORDERED: ONDANSETRON 2MG/ML, 2ML IVPush PRN (15:30)
[2017-09-23] MEDS ORDERED: hydrALAzine 20 MG/ML, 1ML IVPush PRN (15:30)
[2017-09-23] MEDS ORDERED: BISACODYL 10 MG SUPP PR PRN (15:30)
[2017-09-23] MEDS ORDERED: ACETAMINOPHEN 650 MG/20.3 ML UDC PO PRN (15:30)
[2017-09-23] MEDS: MICAFUNGIN 100 MG in SODIUM CHLORIDE 0.9% 100 ML IV SCH (16:32)
[2017-09-23 17:32] VITALS: BP 125/76
[2017-09-23] MEDS: DIPHENHYDRAMINE 50 MG/ML, 1ML IVPush PRN ×2 (22:16→22:17)
[2017-09-24] MEDS: METHOCARBAMOL 500 MG TABLET PO PRN ×2 (00:13→20:53)
[2017-09-24] MEDS: INSULIN REGULAR, HUMAN 100 UNITS/ML, 3ML HIGH DOSE SS SQ-INSULIN SCH ×5 (00:31→23:00)
[2017-09-24 01:18] VITALS: BP 132/84
[2017-09-24] MEDS: HYDROcodone/APAP 5/325 TABLET PO PRN ×3 (01:26→20:53)
[2017-09-24] MEDS: AMPICILLIN/SULBACTAM 3 GM in SODIUM CHLORIDE 0.9% 100 ML IV SCH ×4 (01:30→20:53)
[2017-09-24 05:41] LABS: HEMATOCRIT 34.9 % (39.2-51.8); HEMOGLOBIN 11.2 g/dL (13.7-18.0); WHITE BLOOD COUNT 12.3 x10^3/uL (3.4-10)
[2017-09-24 05:49] LABS: BLOOD UREA NITROGEN 53 mg/dL (7-18)
[2017-09-24] MEDS: VANCOMYCIN 50 MG/ML ORAL SUSP PO SCH ×4 (06:22→16:54)
[2017-09-24 07:25] VITALS: BP 151/81
[2017-09-24] MEDS: PANTOPRAZOLE 40 MG IV IV SCH (07:58)
[2017-09-24] MEDS: NICOTINE 14MG/24 HR PATCH.TD24 TD SCH (07:59)
[2017-09-24] MEDS: FOLIC ACID 1 MG TABLET NG SCH (07:59)
[2017-09-24] MEDS: GABAPENTIN 300 MG CAPSULE PO SCH ×2 (08:00→20:53)
[2017-09-24] MEDS: ENOXAPARIN 40 MG/0.4 ML SQ SCH (08:00)
[2017-09-24] MEDS: POTASSIUM CHLORIDE 10% 40 MEQ/30 ML UDC NG SCH (08:00)
[2017-09-24] MEDS: INSULIN DETEMIR 100 UNITS/ML, PEN SQ-INSULIN SCH ×2 (08:01→20:53)
[2017-09-24] MEDS: THIAMINE 100 MG in DEXTROSE 5% 50 ML IV SCH (11:52)
[2017-09-24] MEDS: FUROSEMIDE 20 MG/2 ML IV SCH (11:52)
[2017-09-24 12:27] VITALS: BP 133/87
[2017-09-24] MEDS ORDERED: THIA100T6 PO (12:33)
[2017-09-24] MEDS ORDERED: VANC1VIA3 PO (12:33)
[2017-09-24] MEDS ORDERED: MICA100V3 IVPB (12:33)
[2017-09-24] MEDS ORDERED: INSU100I28 SQ-INSULIN (12:33)
[2017-09-24] MEDS ORDERED: PANT40VI IV (12:33)
[2017-09-24] MEDS ORDERED: FURO10VI37 IV (12:33)
[2017-09-24] MEDS ORDERED: GABA300C10 PO (12:33)
[2017-09-24] MEDS ORDERED: FOLI-17 NG (12:33)
[2017-09-24] MEDS ORDERED: ENOX40SY4 SQ (12:33)
[2017-09-24] MEDS ORDERED: NICO-486 TD (12:33)
[2017-09-24] MEDS ORDERED: INSU100V5 SQ-INSULIN (12:33)
[2017-09-24] MEDS ORDERED: AMPI3VIA IVPB (12:33)
[2017-09-24] MEDS: MICAFUNGIN 100 MG in SODIUM CHLORIDE 0.9% 100 ML IV SCH (16:52)
[2017-09-24 19:57] VITALS: BP 125/78
[2017-09-25] MEDS: AMPICILLIN/SULBACTAM 3 GM in SODIUM CHLORIDE 0.9% 100 ML IV SCH ×3 (02:43→13:25)
[2017-09-25] MEDS: VANCOMYCIN 50 MG/ML ORAL SUSP PO SCH ×3 (02:43→12:09)
[2017-09-25 03:16] VITALS: BP 117/68
[2017-09-25] MEDS: HYDROcodone/APAP 5/325 TABLET PO PRN ×2 (03:41→13:24)
[2017-09-25 05:18] LABS: HEMATOCRIT 27.9 % (39.2-51.8); HEMOGLOBIN 9.3 g/dL (13.7-18.0); WHITE BLOOD COUNT 10.7 x10^3/uL (3.4-10)
[2017-09-25] MEDS: INSULIN REGULAR, HUMAN 100 UNITS/ML, 3ML HIGH DOSE SS SQ-INSULIN SCH ×2 (06:26→12:12)
[2017-09-25 08:05] VITALS: BP 147/84
[2017-09-25] MEDS ORDERED: FUROSEMIDE 20 MG/2 ML IV SCH (09:00)
[2017-09-25] MEDS ORDERED: ENOXAPARIN 40 MG/0.4 ML SQ SCH (09:00)
[2017-09-25] MEDS: THIAMINE 100 MG in DEXTROSE 5% 50 ML IV SCH (09:16)
[2017-09-25] MEDS: FOLIC ACID 1 MG TABLET NG SCH (09:16)
[2017-09-25] MEDS: GABAPENTIN 300 MG CAPSULE PO SCH (09:16)
[2017-09-25] MEDS: INSULIN DETEMIR 100 UNITS/ML, PEN SQ-INSULIN SCH (09:18)
[2017-09-25] MEDS: NICOTINE 14MG/24 HR PATCH.TD24 TD SCH (09:18)
[2017-09-25] MEDS: PANTOPRAZOLE 40 MG IV IV SCH (09:21)
[2017-09-25 11:21] LABS: BLOOD UREA NITROGEN 32 mg/dL (7-18)
[2017-09-25 12:50] VITALS: BP 115/71
[2017-09-25 13:05] VITALS: BP 122/73
== END 2017-09-25 15:13 | DRG 326 ==
LOC: ORIP 13:07 → EDSTATUS 16:00 → 4NOR 20:27 → CCU 09-08 16:09 → ICU 09-13 03:54 → CCU 09-14 17:21 → 4NOR 09-22 17:54
PROVIDERS: ADMIT Thoracic Surgery (Cardiothoracic Vascular Surgery); ATTEND Thoracic Surgery (Cardiothoracic Vascular Surgery)
PROC: 0DHA3UZ Insertion of Feeding Device into Jejunum, Percutaneous Approach (ICD-10-PCS; 2017-09-07)
PROC: 0DB54ZZ Excision of Esophagus, Percutaneous Endoscopic Approach (ICD-10-PCS; 2017-09-07)
PROC: 0D130Z6 Bypass Lower Esophagus to Stomach, Open Approach (ICD-10-PCS; 2017-09-07 16:00)
PROC: 0W9900Z Drainage of Right Pleural Cavity with Drainage Device, Open Approach (ICD-10-PCS; 2017-09-08)
PROC: 0DB60ZZ Excision of Stomach, Open Approach (ICD-10-PCS; principal; 2017-09-08 16:45)
PROC: 5A1955Z Respiratory Ventilation, Greater than 96 Consecutive Hours (ICD-10-PCS; 2017-09-09)
PROC: 0BH17EZ Insertion of Endotracheal Airway into Trachea, Via Natural or Artificial Opening (ICD-10-PCS; 2017-09-09)
PROC: 02HV33Z Insertion of Infusion Device into Superior Vena Cava, Percutaneous Approach (ICD-10-PCS; 2017-09-24)
PROC: B5181ZA Fluoroscopy of Superior Vena Cava using Low Osmolar Contrast, Guidance (ICD-10-PCS; 2017-09-24)
PROC: B548ZZA Ultrasonography of Superior Vena Cava, Guidance (ICD-10-PCS; 2017-09-24)
DX: C15.5 Malignant neoplasm of lower third of esophagus (principal); E43 Unspecified severe protein-calorie malnutrition; J81.0 Acute pulmonary edema; N17.0 Acute kidney failure with tubular necrosis; J96.01 Acute respiratory failure with hypoxia; J98.51 Mediastinitis; G93.40 Encephalopathy, unspecified; K65.9 Peritonitis, unspecified; E87.0 Hyperosmolality and hypernatremia; A04.72 Enterocolitis due to Clostridium difficile, not specified as recurrent; T81.4XXA Infection following a procedure, initial encounter; K91.89 Other postprocedural complications and disorders of digestive system; Z51.5 Encounter for palliative care; D63.8 Anemia in other chronic diseases classified elsewhere; E11.65 Type 2 diabetes mellitus with hyperglycemia; E78.00 Pure hypercholesterolemia, unspecified; F17.210 Nicotine dependence, cigarettes, uncomplicated; F32.9 Major depressive disorder, single episode, unspecified; F41.9 Anxiety disorder, unspecified; H40.9 Unspecified glaucoma; I10 Essential (primary) hypertension; I35.8 Other nonrheumatic aortic valve disorders; K21.9 Gastro-esophageal reflux disease without esophagitis; M19.90 Unspecified osteoarthritis, unspecified site; Z78.1 Physical restraint status; Z82.49 Family history of ischemic heart disease and other diseases of the circulatory system; Z83.3 Family history of diabetes mellitus; Z85.01 Personal history of malignant neoplasm of esophagus; Z85.828 Personal history of other malignant neoplasm of skin; Z86.14 Personal history of Methicillin resistant Staphylococcus aureus infection; Z68.24 Body mass index [BMI] 24.0-24.9, adult; Y83.2 Surgical operation with anastomosis, bypass or graft as the cause of abnormal reaction of the patient, or of later complication, without mention of misadventure at the time of the procedure; Y73.1 Therapeutic (nonsurgical) and rehabilitative gastroenterology and urology devices associated with adverse incidents
CPT/HCPCS: 36415; 36569; 36600; 71010; 74230; 74241; 76937; 77001; 80048; 80053; 82140; 82533; 82803; 82805; 82962; 83036; 83735; 84478; 84484; 85014; 85018; 85025; 87040; 87070; 87081; 87086; 87106; 87186; 87205; 87324; 88309; 93005; 93306; 94002; 94003; 94150; 94640; 94660; B4087; C1729; J0171; J0295; J0690; J1170; J1650; J1815; J1940; J2248; J2250; J2270; J2405; J2543; J2704; J2710; J3010; J3370; J3411; J3490; J7060; J7120; J7613; J7620; P9045; C1751; C1760; C9113; J1200; J2060; J2370; J3475; J7050